=== PATIENT | male | born 1940 | race Caucasian/White ===

== ENCOUNTER 2023-06-09 01:32 | Observation (INO) ==
[2023-06-09] MEDS ORDERED: ONDANSETRON INJ 2 MG/ML 2 ML VIAL IV STA (03:01)
[2023-06-09] MEDS ORDERED: MoRPHine SULFATE 2 MG/ML CARP IV STA (03:01)
[2023-06-09] MEDS ORDERED: SODIUM CHLORIDE 0.9% 1,000 ML IV SCH (03:15)
[2023-06-09 03:36] LABS: Albumin Globulin Ratio 1.1 (0.9-2); BUN Creatinine Ratio 18.2 (10-20); Bilirubin,Total 1.7 mg/dl (0.2-1.0); Calcium 9.6 mg/dl (8.6-10.3); Creatinine Clr Calc Pharmacy 29.4 ml/min; Est GFR (Non-African American) 34.5 ml/min; Globulin 3.5 gm/dl (2.5-4.0); Magnesium 2.1 mg/dl (1.7-2.4); Potassium 4.3 mmol/L (3.5-5.1); Total Protein 7.5 gm/dl (6.0-8.3)
[2023-06-09 03:51] LABS: Thyroid Stimulating Hormone 10.114 uIu/ml (0.300-4.500)
[2023-06-09 04:12] LABS: Anisocytosis Present; Basophils # (auto) 0.01 K/uL (0.00-0.20); Basophils % (auto) 0.4 %; Eosinophils % (auto) 7.6 %; Hematocrit (blood only) 27.8 % (42.0-52.0); Hemoglobin 8.6 g/dl (14.0-18.0); Immature Granulocytes # (auto) 0.01 K/uL (0.01-0.20); Immature Granulocytes % (auto) 0.4 %; Lymphocytes % (auto) 30.5 %; Mean Corpuscular Hemoglobin 31.5 pg (25.0-34.0); Mean Corpuscular Hgb Conc 30.9 g/dL (32.0-36.0); Mean Corpuscular Volume 101.8 fL (80.0-100.0); Mean Platelet Volume 12.6 fL (9.4-12.4); Monocytes # (auto) 0.32 K/uL (0.11-0.59); Monocytes % (auto) 12.2 %; Neutrophils # (auto) 1.28 K/uL (1.40-6.50); Neutrophils % (auto) 48.9 %; Platelet Count 72 K/uL (130-400); RDW Coefficient of Variation 21.4 % (11.5-14.5); RDW Standard Deviation 79.9 fL (36.4-46.3); Red Blood Count 2.73 M/uL (4.70-6.10); White Blood Count 2.62 K/ul (4.8-10.8)
[2023-06-09 04:27] LABS: T4 Free Thyroxine 0.85 ng/dl (0.61-1.60)
--- NOTE | 2023-06-09 06:03 | Emergency Department Note ---
Impression & Plan ICD (implantable cardioverter-defibrillator) discharge, Palliative care patient ED Provider Note CHIEF COMPLAINT: AICD fired HISTORY OF PRESENT ILLNESS: This 82-year-old male patient with past medical history of dementia, hypercholesterolemia, diabetes, hypertension with AICD in place, presents to the emergency department from the [facility] after his defibrillator shocked him several times. The patient is entering hospice care as of today, and his /POA desires to have his defibrillator deactivated. The patient has no complaints at this time. Case management contacted the [facility] and confirmed with the charge nurse that the report from EMS is accurate. Patient does not have any significant medical records in our system. REVIEW OF SYSTEMS: Unable to obtain a full review of systems secondary to the patient's mental status ALLERGIES: see below MEDICATIONS: see below PMH: see below SOCIAL HISTORY: see below DDx: Cardiac arrhythmia, electrolyte abnormality, dehydration, acute coronary syndrome, PE among others PHYSICAL EXAM: Vital signs reviewed. General: Elderly, chronically ill-appearing 82-year-old male, in no significant distress. HEENT: No scleral icterus, PERRLA, neck supple. Moist mucous membranes Cardiovascular: Regular rate and rhythm, no extra sounds. Pulmonary: Clear to auscultation bilaterally, normal work of breathing. Abdomen: Soft, nontender, nondistended, positive bowel sounds. Musculoskeletal: Atraumatic, no peripheral edema. Neurologic: Patient awake alert and oriented x 3, speech is clear Skin: Warm, dry, no rash EMERGENCY DEPARTMENT COURSE/MDM: This patient was evaluated and appeared to be in no significant distress. I did confirm with the patient, although he is demented, that he knew he may if the defibrillator is deactivated. He stated that that would be okay with him. Case management contacted the [facility] and spoke with charge nurse Erin who confirmed that the plan with the POA and is to deactivate the defibrillator and enter comfort care. Saline lock was placed and laboratory work was drawn. Patient is noted to be prerenal and gentle IV hydration was initiated. A magnet has been placed over the defibrillator and taped. The patient was admitted to Dr. Espinoza. He did speak with patient's daughter Radha and by report, Radha was very upset with the plan. I then was able to discuss the situation with Chante, the patient's and power of insurance attorney. She stated patient's daughter Radha should not be given any information, but daughter Rosita is okay to speak with. [facility] again confirmed that patient's Chante is the power of insurance attorney and all medications were stopped yesterday. At this time we will proceed as planned with deactivating the AICD. I did again have a conversation with Dr. Espinoza to confirm the plan. RADIOLOGY: Chest x-ray to my interpretation reveals AICD in place. Magnets overlying the soft tissue however not over the defibrillator DISPOSITION: Admit Past Med/Surg History Medical History (Updated 06/09/23 @ 06:03 by Lakeshia Beavers MD) Hypertension TIA (transient ischemic attack) Lumbar stenosis with neurogenic claudication (05/16/14) Social History Smoking Status: Never smoker Preferred Language: Serbian Feels Safe at Home: Yes Allergies Allergies Allergy/AdvReac Type Severity Reaction Status Date / Time No Known Allergies Allergy Unverified 05/31/22 18:36 Home Meds Home Medications Medication Instructions Recorded Confirmed atorvastatin 40 mg tablet 40 mg PO QPM 05/31/22 05/31/22 calcitriol 0.25 mcg capsule 0.25 mcg PO 3XWK 05/31/22 05/31/22 carvedilol 3.125 mg tablet 3.125 mg PO BID 05/31/22 05/31/22 clopidogrel 75 mg tablet 75 mg PO QAM 05/31/22 05/31/22 glimepiride 4 mg tablet 4 mg PO QAM 05/31/22 05/31/22 levothyroxine 100 mcg tablet 100 mcg PO DAILYBB 05/31/22 05/31/22 lisinopril 10 mg tablet 10 mg PO QAM 05/31/22 05/31/22 oxycodone-acetaminophen 5 mg-325 1 tab PO BID PRN Pain 05/31/22 05/31/22 mg tablet trazodone 50 mg tablet 50 mg PO HS 05/31/22 05/31/22 Results & Data (ED) Vital Signs Vital Signs - 24 hr 06/09/23 01:39 06/09/23 02:00 06/09/23 02:30 Temperature 36.7 C Temperature Source Oral Pulse Rate 75 89 Respiratory Rate 12 Blood Pressure 135/78 Blood Pressure Mean 97 Pulse Oximetry 100 Oxygen Delivery Method Room Air Room Air Sepsis Recent Fever Within 48 Hours No Sepsis New/Unexplained Change in Mental Status No Sepsis Action Taken by Nursing No Action Required 06/09/23 02:30 06/09/23 03:30 06/09/23 04:05 Temperature Temperature Source Pulse Rate 80 71 Respiratory Rate 18 15 Blood Pressure 125/63 117/59 L Blood Pressure Mean 83 78 Pulse Oximetry 94 91 95 Oxygen Delivery Method Room Air Sepsis Recent Fever Within 48 Hours Sepsis New/Unexplained Change in Mental Status Sepsis Action Taken by Nursing 06/09/23 04:30 Temperature Temperature Source Pulse Rate 70 Respiratory Rate 16 Blood Pressure 110/54 L Blood Pressure Mean 72 Pulse Oximetry 96 Oxygen Delivery Method Sepsis Recent Fever Within 48 Hours Sepsis New/Unexplained Change in Mental Status Sepsis Action Taken by [facility] Medications Current Medication List: was personally reviewed by me (stopped meds yesterday) Laboratory Data Attestation: I reviewed the patient's lab results. 06/09/23 03:00 06/09/23 03:00 Lab Results 06/09/23 Range/Units 03:00 WBC 2.62 L (4.8-10.8) K/ul RBC 2.73 L (4.70-6.10) M/uL Hgb 8.6 L (14.0-18.0) g/dl Hct 27.8 L (42.0-52.0) % MCV 101.8 H (80.0-100.0) fL MCH 31.5 (25.0-34.0) pg MCHC 30.9 L (32.0-36.0) g/dL RDW Std Deviation 79.9 H (36.4-46.3) fL RDW Coeff of Tho 21.4 H (11.5-14.5) % Plt Count 72 L (130-400) K/uL MPV 12.6 H (9.4-12.4) fL Immature Gran % (Auto) 0.4 % Neut % (Auto) 48.9 % Lymph % (Auto) 30.5 % [place] % (Auto) 12.2 % Eos % (Auto) 7.6 % Baso % (Auto) 0.4 % Neut # (Auto) 1.28 L (1.40-6.50) K/uL Lymph # (Auto) 0.80 L (1.20-3.40) K/uL [place] # (Auto) 0.32 (0.11-0.59) K/uL Eos # (Auto) 0.20 (0.00-0.50) K/uL Baso # (Auto) 0.01 (0.00-0.20) K/uL Immature Gran # (Auto) 0.01 (0.01-0.20) K/uL Anisocytosis Present Sodium 140 (136-145) mmol/L Potassium 4.3 (3.5-5.1) mmol/L Chloride 103 (98-107) mmol/L Carbon Dioxide 28 (21-32) mmol/L Anion Gap 9 (3-11) BUN 33 H (6-23) mg/dl Creatinine 1.81 H (0.6-1.4) mg/dl Est Cr Clr Drug Dosing 29.4 ml/min Est GFR ( Amer) 40.0 ml/min Est GFR (Non-Af Amer) 34.5 ml/min BUN/Creatinine Ratio 18.2 (10-20) Glucose 112 H (70-99(Fasting)) mg/dl Calcium 9.6 (8.6-10.3) mg/dl Magnesium 2.1 (1.7-2.4) mg/dl Total Bilirubin 1.7 H (0.2-1.0) mg/dl AST 23 (13-39) U/L ALT 19 (7-52) U/L Alkaline Phosphatase 82 (34-104) U/L Total Protein 7.5 (6.0-8.3) gm/dl Albumin 4.0 (3.4-5.0) gm/dl Globulin 3.5 (2.5-4.0) gm/dl Albumin/Globulin Ratio 1.1 (0.9-2) TSH 10.114 H (0.300-4.500) uIu/ml Free T4 0.85 (0.61-1.60) ng/dl Administered Medications Discontinued Medications Morphine Sulfate (Morphine Sulfate 2 Mg/Ml Carp) 2 mg IV NOW STA Stop: 06/09/23 03:02 Last Admin: 06/09/23 03:12 Dose: 2 mg Documented By: NAW Ondansetron HCl (Ondansetron Inj 2 Mg/Ml 2 Ml Vial) 4 mg IV NOW STA Stop: 06/09/23 03:02 Last Admin: 06/09/23 03:12 Dose: 4 mg Documented By: THERESA Discharge Plan Visit Data Chief Complaint: Arrhythmia/Palpitations Stated Complaint: AICD FIRING ED Provider: Lakeshia Beavers Discharge Problem: ICD (implantable cardioverter-defibrillator) discharge, Palliative care patient Forms Stand Alone Forms: My [facility] Prescriptions Prescriptions: No Action clopidogrel 75 mg tablet 75 mg PO QAM oxycodone-acetaminophen 5-325 mg tablet 1 tab PO BID PRN (Reason: Pain) lisinopril 10 mg tablet 10 mg PO QAM glimepiride 4 mg tablet 4 mg PO QAM atorvastatin 40 mg tablet 40 mg PO QPM calcitriol 0.25 mcg capsule 0.25 mcg PO 3XWK Rx Instructions: take daily on mon/wed/fri trazodone 50 mg tablet 50 mg PO HS carvedilol 3.125 mg tablet 3.125 mg PO BID levothyroxine 100 mcg tablet 100 mcg PO DAILYBB Referrals Referrals: Katrina Quinteros D.O. [Primary Care Provider] -
--- NOTE | 2023-06-09 06:08 | History & Physical Report ---
Date of Service June 09, 2023 Assessment & Plan (1) Palliative care patient: Plan: 82-year-old male with past med significant for anemia chronic kidney disease, CKD stage III, CAD, systolic CHF, s/p ICD, dysphagia, hypertension, hyponatremia, hypothyroidism, myelodysplastic syndrome, pancytopenia, history of TIA, history of CVA, history of spinal stenosis, history of chronic disease, history of general anxiety disorder, history of hypertension, history muscle weakness, history of paroxysmal atrial fibrillation, diabetes type 2, vascular dementia, ambulatory dysfunction, vitamin B12 deficiency, was brought in from her side for comfort care. Patient seems to having apneic episodes and is almost stops breathing and ICD shocks and bring him back ,it happened 5 times since yesterday morning and the family, daughter and decided to make him comfort care and turn of the ICD. That is in the reason patient was brought in here. Currently Magnet placed on the ICD site. Patient agreed for placing magnet for the ER physician and he seemed to know the consequences. Currently patient is confused. Could not answer any questions. Goes to sleep. As per senior living since yesterday morning he has been declining.. Generally he ambulates without support. On pured diet. Talked with the and also his daughter Ms. Becker and they agreed for comfort care and turning off the ICD. As per the senior living patient is oriented to self and can recognize the family. Comfort care Currently Magnet placed on the ICD Consult cardiology for turning of the ICD IV morphine and Ativan as needed Palliative care consult Ph No: [phone] Daughter ph no: [phone]. Seems is POA. History of Present Illness Chief Complaint: ICD shocks. Plan for comfort care Primary Care Provider: Katrina Quinteros 82-year-old male with past med significant for anemia of chronic kidney disease, CKD stage III, CAD, systolic CHF, s/p ICD, dysphagia, hypertension, hyponatremia, hypothyroidism, myelodysplastic syndrome, pancytopenia, history of TIA, history of CVA, history of spinal stenosis, history of chron's disease, history of general anxiety disorder, history of hypertension, history muscle weakness, history of paroxysmal atrial fibrillation, diabetes type 2, vascular dementia, ambulatory dysfunction, vitamin B12 deficiency, was brought in from [facility] for comfort care. Patient seems to having apneic episodes and almost stops breathing and ICD shocks and bring him back ,it happened 5 times since yesterday morning and the family, daughter and decided to make him comfort care and turn off the ICD. That is in the reason patient was brought in here. Currently Magnet placed on the ICD site. Patient agreed for placing magnet for the ER physician and he seemed to know the consequences. Currently patient is confused. Could not answer any questions. Goes to sleep. As per senior living since yesterday morning he has been declining.. Generally he ambulates without support. On pured diet. Talked with the and also his daughter Ms. Becker and they agreed for comfort care and turning off the ICD. As per the senior living patient is oriented to self and can recognize the family Past medical history. As mentioned above Past surgical history. S/p ICD Social history. Not available at this time. Family history. Not available at this time. Allergies Allergy/AdvReac Type Severity Reaction Status Date / Time No Known Allergies Allergy Unverified 05/31/22 18:36 Home Medications Medication Instructions Recorded Confirmed Type atorvastatin 40 mg tablet 40 mg PO QPM 05/31/22 05/31/22 History calcitriol 0.25 mcg capsule 0.25 mcg PO 3XWK 05/31/22 05/31/22 History carvedilol 3.125 mg tablet 3.125 mg PO BID 05/31/22 05/31/22 History clopidogrel 75 mg tablet 75 mg PO QAM 05/31/22 05/31/22 History glimepiride 4 mg tablet 4 mg PO QAM 05/31/22 05/31/22 History levothyroxine 100 mcg tablet 100 mcg PO DAILYBB 05/31/22 05/31/22 History lisinopril 10 mg tablet 10 mg PO QAM 05/31/22 05/31/22 History oxycodone-acetaminophen 5 mg-325 1 tab PO BID PRN Pain 05/31/22 05/31/22 History mg tablet trazodone 50 mg tablet 50 mg PO HS 05/31/22 05/31/22 History Past Med/Surg History Medical History (Updated 06/09/23 @ 06:03 by aLkeshia Beavers MD) Hypertension TIA (transient ischemic attack) Lumbar stenosis with neurogenic claudication (05/16/14) Social History Smoking Status: Never smoker Preferred Language: Burundian Feels Safe at Home: Yes Review of Systems Review of Systems: Unobtainable due to cognitive status Physical Exam Physical Exam: General- confused and drowsy Head- atraumatic Eyes- PERRL. Neck- supple, no JVD. Lungs- clear to auscultation no wheezing or crackles Heart- regular rhythm; no murmur, no gallop. Abdomen- normal bowel sounds, soft, no distension Extremities- mild pretibial edema present, no erythema seen. Neuro- confused.; PERRL, no facial palsy; no dysarthria; moves extremities Skin- warm & dry Results & Data Results & Data Vital Signs (Past 12 Hours) Vital Signs Temp Pulse Resp BP Pulse Ox O2 Del Method 06/09/23 04:30 70 16 110/54 L 96 06/09/23 04:05 95 Room Air 06/09/23 03:30 71 15 117/59 L 91 06/09/23 02:30 80 18 125/63 94 06/09/23 02:30 Room Air 06/09/23 02:00 89 06/09/23 01:39 36.7 C 75 12 135/78 100 Room Air Diagnostic Findings Laboratory Results WBC 2.62 K/ul (4.8-10.8) L 06/09/23 03:00 RBC 2.73 M/uL (4.70-6.10) L 06/09/23 03:00 Hgb 8.6 g/dl (14.0-18.0) L 06/09/23 03:00 Hct 27.8 % (42.0-52.0) L 06/09/23 03:00 MCV 101.8 fL (80.0-100.0) H 06/09/23 03:00 MCH 31.5 pg (25.0-34.0) 06/09/23 03:00 MCHC 30.9 g/dL (32.0-36.0) L 06/09/23 03:00 RDW Std Deviation 79.9 fL (36.4-46.3) H 06/09/23 03:00 RDW Coeff of Tho 21.4 % (11.5-14.5) H 06/09/23 03:00 Plt Count 72 K/uL (130-400) L 06/09/23 03:00 MPV 12.6 fL (9.4-12.4) H 06/09/23 03:00 Immature Gran % (Auto) 0.4 % 06/09/23 03:00 Neut % (Auto) 48.9 % 06/09/23 03:00 Lymph % (Auto) 30.5 % 06/09/23 03:00 [place] % (Auto) 12.2 % 06/09/23 03:00 Eos % (Auto) 7.6 % 06/09/23 03:00 Baso % (Auto) 0.4 % 06/09/23 03:00 Neut # (Auto) 1.28 K/uL (1.40-6.50) L 06/09/23 03:00 Lymph # (Auto) 0.80 K/uL (1.20-3.40) L 06/09/23 03:00 [place] # (Auto) 0.32 K/uL (0.11-0.59) 06/09/23 03:00 Eos # (Auto) 0.20 K/uL (0.00-0.50) 06/09/23 03:00 Baso # (Auto) 0.01 K/uL (0.00-0.20) 06/09/23 03:00 Immature Gran # (Auto) 0.01 K/uL (0.01-0.20) 06/09/23 03:00 Anisocytosis Present 06/09/23 03:00 Sodium 140 mmol/L (136-145) 06/09/23 03:00 Potassium 4.3 mmol/L (3.5-5.1) 06/09/23 03:00 Chloride 103 mmol/L (98-107) 06/09/23 03:00 Carbon Dioxide 28 mmol/L (21-32) 06/09/23 03:00 Anion Gap 9 (3-11) 06/09/23 03:00 BUN 33 mg/dl (6-23) H 06/09/23 03:00 Creatinine 1.81 mg/dl (0.6-1.4) H 06/09/23 03:00 Est Cr Clr Drug Dosing 29.4 ml/min 06/09/23 03:00 Est GFR ( Amer) 40.0 ml/min 06/09/23 03:00 Est GFR (Non-Af Amer) 34.5 ml/min 06/09/23 03:00 BUN/Creatinine Ratio 18.2 (10-20) 06/09/23 03:00 Glucose 112 mg/dl (70-99(Fasting)) H 06/09/23 03:00 Calcium 9.6 mg/dl (8.6-10.3) 06/09/23 03:00 Magnesium 2.1 mg/dl (1.7-2.4) 06/09/23 03:00 Total Bilirubin 1.7 mg/dl (0.2-1.0) H 06/09/23 03:00 AST 23 U/L (13-39) 06/09/23 03:00 ALT 19 U/L (7-52) 06/09/23 03:00 Alkaline Phosphatase 82 U/L (34-104) 06/09/23 03:00 Total Protein 7.5 gm/dl (6.0-8.3) 06/09/23 03:00 Albumin 4.0 gm/dl (3.4-5.0) 06/09/23 03:00 Globulin 3.5 gm/dl (2.5-4.0) 06/09/23 03:00 Albumin/Globulin Ratio 1.1 (0.9-2) 06/09/23 03:00 TSH 10.114 uIu/ml (0.300-4.500) H 06/09/23 03:00 Free T4 0.85 ng/dl (0.61-1.60) 06/09/23 03:00 ECG Additional Comments: ECG. Atrial fibrillation with competing junctional pacemaker rate of 74. Left axis deviation. QTc of 455 Code Status & VTE Plan VTE Prophylaxis Plan VTE Prophylaxis will be ordered: Yes
--- NOTE | 2023-06-09 07:15 | XRay Report ---
XR chest 1V portable HISTORY: 82 years-old Male weakness acute weakness COMPARISON: 05/31/2022 TECHNIQUE: AP view of the chest FINDINGS: Cardiac silhouette is enlarged. Median sternotomy with CABG. Left subclavian pacer/AICD. No pneumotho rax, pleural effusion or airspace consolidation. A round radiopaque structure/magnet projects over th e left chest and pacer battery pack. Bones appear grossly intact. IMPRESSION: No acute process. ACT 112: Negative or not required by law. The above report was generated using voice recognition software. It may contain grammatical, syntax o r spelling errors. Electronically signed by: Richmond Stallings M.D. 06/09/2023 7:14 AM
[2023-06-09] MEDS ORDERED: LORazepam 0.5 MG in SYRINGE 0.25 ML IV PRN (07:46)
[2023-06-09] MEDS ORDERED: ACETAMINOPHEN 325 MG TAB PO PRN (07:46)
[2023-06-09] MEDS ORDERED: MoRPHine SULFATE 2 MG/ML CARP IV PRN (07:46)
[2023-06-09] MEDS ORDERED: ONDANSETRON 4 MG OD TAB SL PRN (07:46)
[2023-06-09] MEDS ORDERED: LORazepam 0.5 MG TAB PO PRN (07:46)
[2023-06-09] MEDS ORDERED: ONDANSETRON INJ 2 MG/ML 2 ML VIAL IV PRN ×2 (07:46)
[2023-06-09 08:24] LABS: Appearance Urine Clear (Clear); Bilirubin Urine Negative (Negative); Blood Urine Negative (Negative); Color Urine Yellow; Glucose Urine UA Negative (Negative); Ketones Urine Negative (Negative); Leukocyte Esterase Urine Negative (Negative); Nitrite Urine Negative (Negative); Protein Urine Negative (Negative); Specific Gravity Urine 1.019 (1.000-1.030); Urobilinogen Urine Negative (Negative); pH Urine 5.5 (4.5-7.5)
--- NOTE | 2023-06-09 09:30 | Communication Note ---
Date of Service: June 09, 2023 84-year-old male with significant complicated past medical history as mentioned in H&P was brought in from [facility] with repeated firing of defibrillator. He has been stable in the emergency room and was seen in presence of the family members . After long discussions with the family members and the patient it was decided that the defibrillator will be deactivated and the patient will be sent to [facility] to continue with hospice/comfort care down the line. This was repeatedly made aware to the family members who wanted this to happen. The strategic marketing manager was involved to deactivate the defibrillator and the patient will be sent [facility] for continued hospice/comfort care down the line. The family members are agreeable with that. brand marketing manager is involved who has been making other arrangements for a safe discharge. Dr. Heather Teran hospitalist at [facility]
--- NOTE | 2023-06-09 09:32 | Palliative Care Consultation ---
Date of Consultation June 09, 2023 Assessment & Plan (1) Palliative care patient: Plan Chart reviewed/consult appreciated Patient is here for device deactivation then returning to his SNF with hospice (Unclear why the SNF could not deactivate device on site) No urgent / acute inpatient pall med needs, therefore this consult is declined - pt not seen and no charge submitted Please don't hesitate to call or page with any additional concerns. Dr. Norma Barrios DNP Director, Palliative Care History of Present Illness Reason for Consultation: "family request comfort care" Requesting Physician: Alexis Attending Physician: Vernon Todd MD History of Present Illness Per ED notes: "This 82-year-old male patient with past medical history of dementia, hypercholesterolemia, diabetes, hypertension with AICD in place, presents to the emergency department from the [facility] after his defibrillator shocked him several times. The patient is entering hospice care as of today, and his /POA desires to have his defibrillator deactivated. The patient has no complaints at this time. Case management contacted the [facility] and confirmed with the charge nurse that the report from EMS is accurate. Patient does not have any significant medical records in our system." and, "This patient was evaluated and appeared to be in no significant distress. I did confirm with the patient, although he is demented, that he knew he may i f the defibrillator is deactivated. He stated that that would be okay with him. Case management contacted the [facility] and spoke with charge nurse Erin who confirmed that the plan with the POA and is to deactivate the defibrillator and enter comfort care. Saline lock was placed and laboratory work was drawn. Patient is noted to be prerenal and gentle IV hydration was initiated. A magnet has been placed over the defibrillator and taped. The patient was admitted to Dr. Espinoza. He did speak with patient's daughter Radha and by report, Radha was very upset with the plan. I then was able to discuss the situation with Chante, the patient's and power of patent prosecution attorney. She stated patient's daughter Radha should not be given any information, but daughter Rosita is okay to speak with. [facility] again confirmed that patient's Chante is the power of patent prosecution attorney and all medications were stopped yesterday. At this time we will proceed as planned with deactivating the AICD. I did again have a conversation with Dr. Espinoza to confirm the plan. " Allergies Allergy/AdvReac Type Severity Reaction Status Date / Time No Known Allergies Allergy Unverified 05/31/22 18:36 Home Medications Medication Instructions Recorded Confirmed Type acetaminophen 325 mg tablet 650 mg PO Q12H 06/09/23 06/09/23 History acetaminophen 325 mg tablet 650 mg PO Q6H PRN Pain 06/09/23 06/09/23 History acetaminophen 325 mg tablet 650 mg PO Q6H PRN temp >101 06/09/23 06/09/23 History hydroxyzine HCl 25 mg tablet 25 mg PO Q8H PRN Itching 06/09/23 06/09/23 History lorazepam 0.5 mg tablet (Ativan) 0.5 mg PO Q4H PRN Agitation 06/09/23 06/09/23 History morphine 0.5 ml PO Q1H PRN pain/sob 06/09/23 06/09/23 History Patient History Medical History (Updated 06/09/23 @ 09:39 by Jaswinder Pederson DO) Atrial fibrillation Hypertension TIA (transient ischemic attack) Lumbar stenosis with neurogenic claudication (05/16/14) Social History Smoking Status: Never smoker Preferred Language: Sinhala Feels Safe at Home: Yes Results & Data Vital Signs (Past 12 Hours) Vital Signs Temp Pulse Resp BP Pulse Ox O2 Del Method 06/09/23 07:56 59 L 06/09/23 06:00 61 16 118/61 06/09/23 05:30 60 12 119/66 06/09/23 05:00 85 21 108/61 06/09/23 04:30 70 16 110/54 L 96 06/09/23 04:05 95 Room Air 06/09/23 03:30 71 15 117/59 L 91 06/09/23 02:30 80 18 125/63 94 06/09/23 02:30 Room Air 06/09/23 02:00 89 06/09/23 01:39 36.7 C 75 12 135/78 100 Room Air PG Care Time/CCT Total # of Minutes Spent Total Time Spent with Patient: Total time spent is greater than 50% in coordination of care (as documented) at patient's floor/unit and/or counseling patient: Coding Level of Care Code None Diagnoses Palliative care patient Z51.5
--- NOTE | 2023-06-09 09:41 | Cardiology Consultation ---
Date of Consultation June 09, 2023 Assessment & Plan (1) ICD (implantable cardioverter-defibrillator) discharge: (2) Atrial fibrillation: (3) S/P CABG x 3: (4) Palliative care patient: Plan 82-year-old male [facility] with multiple ICD firing. Will obtain ICD interrogation. Per review of records, family requesting deactivation of ICD therapies and initiation of palliative care/hospice. There is no family currently at bedside. I informed the patient that deactivating ICD therapies could shorten his life. He voiced understanding, however, his level of understanding is limited due to underlying dementia. Will await arrival of POA to discuss further. Appears device is a [employer]. We will require assistance of [employer] corporate sales representative for device reprogramming. Addendum: Pacemaker ICD interrogation reviewed. No evidence of ICD firing or sustained ventricular tachycardia. (power of business attorney) currently at bedside. Patient placed on hospice care yesterday at SNF. requesting deactivation of ICD therapies. She understands device reprogramming would prevent ICD from aborting lethal arrhythmias. Daughter also present and agrees with plan of care. They would like their father to return to SNF on hospice care when ICD programming changes are made. [employer] corporate sales representative contacted to aid with programming changes per my direction. I spent a total of 50 minutes on the date of service in preparation, delivery, and documentation of the care provided to this patient, excluding any time spent in the performance of separately billed services. History of Present Illness Reason for Consultation: " Turn off ICD" Requesting Physician: Dr. Espinoza Attending Physician: Vernon Todd MD History of Present Illness 82-year-old patient presents from [facility] nursing [facility] due to multiple ICD firings. History of dementia, coronary disease status post coronary artery bypass grafting times 09/2000, atrial fibrillation, not anticoagulated, and ICD implantation. No recent cardiovascular records. Patient with significant dementia and unable to offer meaningful history. He does not recall ICD firing. Patient currently agitated and uncooperative. Awake and alert. Oriented to person and place. No family currently at bedside. Allergies Allergy/AdvReac Type Severity Reaction Status Date / Time No Known Allergies Allergy Unverified 05/31/22 18:36 Home Medications Medication Instructions Recorded Confirmed Type acetaminophen 325 mg tablet 650 mg PO Q12H 06/09/23 06/09/23 History acetaminophen 325 mg tablet 650 mg PO Q6H PRN Pain 06/09/23 06/09/23 History acetaminophen 325 mg tablet 650 mg PO Q6H PRN temp >101 06/09/23 06/09/23 History hydroxyzine HCl 25 mg tablet 25 mg PO Q8H PRN Itching 06/09/23 06/09/23 History lorazepam 0.5 mg tablet (Ativan) 0.5 mg PO Q4H PRN Agitation 06/09/23 06/09/23 History morphine 0.5 ml PO Q1H PRN pain/sob 06/09/23 06/09/23 History Patient History Medical History (Updated 06/09/23 @ 09:39 by Jaswinder Pederson DO) Atrial fibrillation Hypertension TIA (transient ischemic attack) Lumbar stenosis with neurogenic claudication (05/16/14) Social History Smoking Status: Former smoker Hx Alcohol Use: Yes Alcohol type: beer Hx Substance Use: No Preferred Language: Upper Sorbian Communication Ability: dementia Assistant Spa Director Required: No Beliefs That Will Affect Care: None Current Living Situation: Snf Other Information That Helps Us Care for You: No Feels Safe at Home: Yes Safety Concerns: Feels Safe At This Time Assistive Devices: Walker Review of Systems Review of Systems: All systems reviewed & are unremarkable except as noted in Subjective Physical Exam Constitutional: well nourished; no acute distress Respiratory: no respiratory distress, no labored breathing and no retractions Auscultation: + diminished lung sounds; no rhonchi and no wheezes Cardiovascular: Rate/Rhythm: + irregularly irregular Heart Sounds: normal S1 and normal S2; no murmur Vessels: no JVD and no carotid bruit Extremities: no edema Gastrointestinal (Abdomen): Inspection/Auscultation: abdomen normal to inspection; abdomen not distended Percussion/Palpation: abdomen soft; no guarding Neurologic: moves all extremities; no focal motor deficits Psychiatric: Mood: + irritable mood Results & Data Vital Signs (Past 12 Hours) Vital Signs Temp Pulse Resp BP Pulse Ox O2 Del Method 06/09/23 07:56 59 L 06/09/23 06:00 61 16 118/61 06/09/23 05:30 60 12 119/66 06/09/23 05:00 85 21 108/61 06/09/23 04:30 70 16 110/54 L 96 06/09/23 04:05 95 Room Air 06/09/23 03:30 71 15 117/59 L 91 06/09/23 02:30 80 18 125/63 94 06/09/23 02:30 Room Air 06/09/23 02:00 89 06/09/23 01:39 36.7 C 75 12 135/78 100 Room Air Laboratory Results Cardiac Enzymes 06/09/23 Range/Units 03:00 AST 23 (13-39) U/L CBC 06/09/23 Range/Units 03:00 WBC 2.62 L (4.8-10.8) K/ul RBC 2.73 L (4.70-6.10) M/uL Hgb 8.6 L (14.0-18.0) g/dl Hct 27.8 L (42.0-52.0) % Plt Count 72 L (130-400) K/uL Neut # (Auto) 1.28 L (1.40-6.50) K/uL Lymph # (Auto) 0.80 L (1.20-3.40) K/uL [place] # (Auto) 0.32 (0.11-0.59) K/uL Eos # (Auto) 0.20 (0.00-0.50) K/uL Baso # (Auto) 0.01 (0.00-0.20) K/uL Comprehensive Metabolic Panel 06/09/23 Range/Units 03:00 Sodium 140 (136-145) mmol/L Potassium 4.3 (3.5-5.1) mmol/L Chloride 103 (98-107) mmol/L Carbon Dioxide 28 (21-32) mmol/L BUN 33 H (6-23) mg/dl Creatinine 1.81 H (0.6-1.4) mg/dl Glucose 112 H (70-99(Fasting)) mg/dl Calcium 9.6 (8.6-10.3) mg/dl AST 23 (13-39) U/L ALT 19 (7-52) U/L Alkaline Phosphatase 82 (34-104) U/L Total Protein 7.5 (6.0-8.3) gm/dl Albumin 4.0 (3.4-5.0) gm/dl Intake and Output 06/08/23 06/09/23 06/09/23 22:59 06:59 14:59 Other: Weight 66.5 kg Weight Measurement Method Built in [facility] (2) Atrial fibrillation Atrial fibrillation type: unspecified Qualified Code(s): I48.91 - Unspecified atrial fibrillation
--- NOTE | 2023-06-09 19:34 | Electrocardiogram Report ---
Test Reason : Blood Pressure : / mmHG Vent. Rate : 074 BPM Atrial Rate : 000 BPM P-R Int : 000 ms QRS Dur : 106 ms QT Int : 410 ms P-R-T Axes : 000 -46 063 degrees QTc Int : 455 ms Atrial fibrillation Left axis deviation Poor R wave progression, consider anterior GA vs. lead placement vs. LVH Abnormal ECG When compared with ECG of 31-MAY-2022 17:09, T wave inversion no longer evident in Lateral leads QT has lengthened Confirmed by Gamal Andrew ([id number]) on 06/09/2023 7:34:05 PM Referred By: REFERRED SELF Confirmed By:Agustin Andrew
--- NOTE | 2023-06-19 09:36 | Discharge Summary ---
Date of Service June 19, 2023 Late documentation for June 09, 2023 Admission HPI Per Admitting Provider 82-year-old male with past med significant for anemia of chronic kidney disease, CKD stage III, CAD, systolic CHF, s/p ICD, dysphagia, hypertension, hyponatremia, hypothyroidism, myelodysplastic syndrome, pancytopenia, history of TIA, history of CVA, history of spinal stenosis, history of chron's disease, history of general anxiety disorder, history of hypertension, history muscle weakness, history of paroxysmal atrial fibrillation, diabetes type 2, vascular dementia, ambulatory dysfunction, vitamin B12 deficiency, was brought in from [facility] for comfort care. Patient seems to having apneic episodes and almost stops breathing and ICD shocks and bring him back ,it happened 5 times since yesterday morning and the family, daughter and decided to make him comfort care and turn off the ICD. That is in the reason patient was brought in here. Currently Magnet placed on the ICD site. Patient agreed for placing magnet for the ER physician and he seemed to know the consequences. Currently patient is confused. Could not answer any questions. Goes to sleep. As per longterm since yesterday morning he has been declining.. Generally he ambulates without support. On pured diet. Talked with the and also his daughter Ms. Becker and they agreed for comfort care and turning off the ICD. As per the longterm patient is oriented to self and can recognize the family Past medical history. As mentioned above Past surgical history. S/p ICD Social history. Not available at this time. Family history. Not available at this time. Principal Diagnosis Palliative care encounter, CAD with systolic CHF and is status post ICD placement. Recurrent firing of ICD with severe discomfort to the patient, chronic kidney disease, history of CVA, myelodysplastic syndrome, vascular dementia with ambulatory dysfunction Discharge Exam General- confused and drowsy Head- atraumatic Eyes- PERRL. Neck- supple, no JVD. Lungs- clear to auscultation no wheezing or crackles Heart- regular rhythm; no murmur, no gallop. Abdomen- normal bowel sounds, soft, no distension Extremities- mild pretibial edema present, no erythema seen. Neuro- confused.; PERRL, no facial palsy; no dysarthria; moves extremities Skin- warm & dry Discharge Data Allergies Allergy/AdvReac Type Severity Reaction Status Date / Time No Known Allergies Allergy Unverified 05/31/22 18:36 Consultations 06/09/23 04:27 ED Decision to Admit Stat 06/09/23 07:46 Consult Palliative Care Routine 06/09/23 08:00 Consult Cardiology Routine Hospital Course (1) Palliative care patient: 82-year-old male with past med significant for anemia chronic kidney disease, CKD stage III, CAD, systolic CHF, s/p ICD, dysphagia, hypertension, hyponatremia, hypothyroidism, myelodysplastic syndrome, pancytopenia, history of TIA, history of CVA, history of spinal stenosis, history of chronic disease, history of general anxiety disorder, history of hypertension, history muscle weakness, history of paroxysmal atrial fibrillation, diabetes type 2, vascular dementia, ambulatory dysfunction, vitamin B12 deficiency, was brought in from her side for comfort care. Patient seems to having apneic episodes and is almost stops breathing and ICD shocks and bring him back ,it happened 5 times since yesterday morning and the family, daughter and decided to make him comfort care and turn of the ICD. That is in the reason patient was brought in here. Currently Magnet placed on the ICD site. Patient agreed for placing magnet for the ER physician and he seemed to know the consequences. Currently patient is confused. Could not answer any questions. Goes to sleep. As per longterm since yesterday morning he has been declining.. Generally he ambulates without support. On pured diet. Talked with the and also his daughter Ms. Becker and they agreed for comfort care and turning off the ICD. As per the longterm patient is oriented to self and can recognize the family. Comfort care Currently Magnet placed on the ICD Consult cardiology for turning of the ICD IV morphine and Ativan as needed Palliative care consult Ph No: [phone] Daughter ph no: [phone]. Seems is POA. Total Time Total Time Spent Total Time Spent (In Minutes): 35 minutes Discharge Plan Discharge Items Patient Disposition: Home - Self-Care Reason For Visit: COMFORT CARE Discharge Diagnosis: Palliative care encounter, CAD with systolic CHF and is status post ICD plac ement. Recurrent firing of ICD with severe discomfort to the patient, chronic kidney disease, history of CVA, myelodysplastic syndrome, vascular dementia with ambulatory dysfunction Condition on Discharge: Fair Activity: As commented below Activity Comment: Requires assistance with ADLs Non-emergency contact: Primary Care Provider Call non-emergency contact if: you have any medication questions and your symptoms worsen Follow-up/Referrals: Katrina Quinteros D.O. [Primary Care Provider] - Diet: Heart Healthy Addtl Attending Provider Instructions: Please take precautions to prevent falls Take your medications as advised Pending Studies at Discharge: No Stand-Alone Forms: My [facility] Medications and DC Order Prescriptions: No Action acetaminophen 325 mg Tablet 650 mg PO Q6H PRN (Reason: temp >101) acetaminophen 325 mg Tablet 650 mg PO Q12H acetaminophen 325 mg Tablet 650 mg PO Q6H MDD 3gm/24h PRN (Reason: Pain) lorazepam [Ativan] 0.5 mg Tablet 0.5 mg PO Q4H PRN (Reason: Agitation) hydroxyzine HCl 25 mg Tablet 25 mg PO Q8H PRN (Reason: Itching) morphine 0.5 ml PO Q1H PRN (Reason: pain/sob) Discharge Orders: Discharge Order (Routine); Ordered 06/09/23 Ordered By: Vernon Todd Admission Data Admit Date/Time: 06/09/23 05:55 Attending Provider: Vernon Todd Admit Provider: Alberto Espinoza Primary Care Provider: Katrina Quinteros Other Providers: Alberto Espinoza; Norma Barrios
== END 2023-06-09 20:04 | disposition home or self-care (01) | DRG 951 ==
LOC: ED 01:32 → EDINP 05:55 → INTOOBSV 05:55 → EDINP 20:03